=== PATIENT | male | born 1965 | race Caucasian/White ===

== ENCOUNTER 2017-08-13 20:08 | Emergency (ER) | payer BC ==
[~2017-08-13] VITALS: Ht 172.7 cm; Wt 86.2 kg
[2017-08-13 20:36] VITALS: BP 140/89
[2017-08-13] MEDS ORDERED: Enoxaparin 100mg Inj SUBQ ONE (21:45)
[2017-08-13 22:03] LABS: BASOPHILS % (AUTO) 0.9 % (0.0-2.0); HEMATOCRIT 43.5 % (42.0-52.0); HEMOGLOBIN 15.2 G/DL (14.2-18.0); LYMPHOCYTES % (AUTO) 39.6 % (20.0-45.0); MEAN CORPUSCULAR VOLUME 89 FL (80-99); MONOCYTES % (AUTO) 7.8 % (1.0-10.0); NEUTROPHILS % (AUTO) 49.6 % (45.0-75.0); PLATELET COUNT 224 K/UL (150-450); RED BLOOD COUNT 4.86 M/UL (4.70-6.10); RED CELL DISTRIBUTION WIDTH 11.4 % (11.6-14.8); WHITE BLOOD COUNT 6.8 K/UL (4.8-10.8)
[2017-08-13 22:12] LABS: ANION GAP 7 mmol/L (5-15); BLOOD UREA NITROGEN 22 mg/dL (7-18); CARBON DIOXIDE 29 MMOL/L (21-32); CHLORIDE 103 MMOL/L (98-107); CREATININE 1.1 MG/DL (0.55-1.30); POTASSIUM 3.8 MMOL/L (3.5-5.1); SODIUM 139 MMOL/L (136-145)
[2017-08-13 22:33] LABS: INR 0.9 (0.9-1.1)
[2017-08-13] MEDS ORDERED: PRADAXA150 MG ORAL (22:40)
--- NOTE | 2017-08-13 22:40 | Emergency Room Report ---
History of Present Illness General Chief Complaint: General Complaint Source: Patient Present Illness [facility] This a 52-year-old male with no significant past medical history. He presents with chief complaint of right calf tenderness and positive DVT. He was kneeling down and felt pain in his right calf area couple days ago. Has an outpatient ultrasound done today which show a peroneal vein DVT. Patient was told to come in. He brought the CD with the ultrasound on it. No reading however. This was told to him by the maintenance mechanic technician. Patient has no nausea no vomiting. No shortness of breath. No recent travel. No recent surgery. No family history of PE or DVT. Allergies: Coded Allergies: No Known Allergies (Unverified , 08/13/17) Patient History Past Medical History: see triage record, old chart reviewed Past Surgical History: none Pertinent Family History: none Social History: Denies: smoking Immunizations: other Reviewed Nursing Documentation: PMH: Agreed, PSxH: Agreed Review of Systems Eye: Denies: eye pain, blurred vision ENT: Denies: ear pain, nose congestion, throat swelling Respiratory: Denies: cough, shortness of breath Cardiovascular: Denies: chest pain, palpitations Gastrointestinal: Denies: abdominal pain, diarrhea, nausea, vomiting Musculoskeletal: Denies: back pain, joint pain Skin: Denies: rash Neurological: Denies: headache, numbness Endocrine: Denies: increased thirst, increased urine Hematologic/Lymphatic: Denies: easy bruising All Other Systems: negative except mentioned in HPI Physical Exam Vital Signs Date Time Temp Pulse Resp B/P (MAP) Pulse Ox O2 Delivery O2 Flow Rate FiO2 08/13/17 20:36 98.6 90 18 148/91 99 Room Air 98.6 vitals normal Sp02 EP Interpretation: reviewed, normal General Appearance: well appearing, no apparent distress, alert Head: normocephalic, atraumatic Eyes: bilateral eye PERRL, bilateral eye EOMI ENT: hearing grossly normal, normal pharynx Neck: full range of motion, supple, no meningismus Respiratory: chest non-tender, lungs clear, normal breath sounds Cardiovascular #1: regular rate, rhythm, no murmur Gastrointestinal: normal bowel sounds, non tender, no mass, no organomegaly, no bruit, non-distended Musculoskeletal: back normal, gait/station normal, normal range of motion, tender - rt calf Psychiatric: mood/affect normal Skin: warm/dry Medical Decision Making Diagnostic Impression: Primary Impression: DVT (deep venous thrombosis) Qualified Codes: I82.4Z1 - Acute embolism and thrombosis of unspecified deep veins of right distal lower extremity ER Course Patient with DVT to right calf area. He looks well. No evidence of PE. He received Lovenox here and prescription for Pradaxa for discharge. I discussed the option of admission versus discharge. 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 He said he will follow up tomorrow morning. He is reliable and has no other risk factor. This is the first time DVT. Last Vital Signs Date Time Temp Pulse Resp B/P (MAP) Pulse Ox O2 Delivery O2 Flow Rate FiO2 08/13/17 20:36 98.6 90 18 148/91 99 Room Air 98.6 Status: improved Disposition: HOME, SELF-CARE Condition: Stable Scripts Dabigatran Etexilate Mesylate* (PRADAXA*) 150 Mg Capsule 150 MG ORAL EVERY 12 HOURS, #60 CAP Prov: SEBASTIAN DOW M.D. 08/13/17 Additional Instructions: Follow-up with your doctor in one to 2 days. Return if symptoms worsen. Return for any bleeding. SEBASTIAN DOW M.D. Aug 13, 2017 22:40
[2017-08-13 22:55] VITALS: BP 140/89
== END 2017-08-13 22:35 | disposition home or self-care (01) ==
LOC: EMR 20:52
DX: I82.4Z1 Acute embolism and thrombosis of unspecified deep veins of right distal lower extremity (principal)
CPT/HCPCS: 36415; 80048; 85025; 85610; 85730; 99284; J1650